=== PATIENT | female | born 1965 | race Caucasian/White ===

== ENCOUNTER 2016-11-25 18:21 | Emergency (ER) | payer SELFPAY ==
[~2016-11-25] VITALS: Ht 152.4 cm; Wt 77.1 kg
[~2016-11-25 18:21] MED LIST: ALBU8.5H2 IH; ALPR0.5T PO; ALPR0.5T72 PO; ALPR2TAB2 PO; AMIT25TA9 PO; CHOLESTEROL MED; CYCL10TA9 PO; DOXY100C2 PO; DULO30CA; DULO60CA6; ESCT10T PO; HYDR-3062 PO; HYDR1CAP2 PO; HYDR1TAB PO; HYDR25CA5 PO; HYOS0.1216 PO; INSU100C7 SQ; INSU100I10 SQ; INSU100I14 SQ; INSU100V13 SQ; INSU100V6 SQ; INSUSS SC; LOVA20TA2 PO; METF500T8 PO; METH4TAB PO; METO10TA3 PO; MTF500T PO; Metoprolol Succinate PO; NF-ESOM40C PO; ONDA-42 SL; PHEN37.582; PRD10T PO; Pantoprazole Sodium PO; RABE20TA PO; RT-FLOV110 INH; SCR1T1 PO; TRZ100T
[2016-11-25] MEDS ORDERED: NS IV 1000 ML 1,000 ML IV ONE ×2 (18:29→20:51)
[2016-11-25] MEDS ORDERED: PANTOPRAZOLE 40 MG/10 ML (PROTONIX) VIAL IV ONE (18:30)
[2016-11-25] MEDS ORDERED: ONDANSETRON 4 MG/2 ML (SDV) Z0FRAN IVP ONE (18:30)
[2016-11-25 18:55] LABS: BASOPHILS % (AUTO) 0 % (0-10); EOSINOPHILS # (AUTO) 0.1 10^3/uL (0.0-0.3); EOSINOPHILS % (AUTO) 1 % (0-10); LYMPHOCYTES # (AUTO) 1.8 X 10^3 (1.0-4.0); LYMPHOCYTES % (AUTO) 20 % (12-44); MEAN CORPUSCULAR HEMOGLOBIN 29 PG (25-34); MEAN CORPUSCULAR HGB CONC 35 G/DL (32-36); MEAN CORPUSCULAR VOLUME 83 FL (80-99); MONOCYTES # (AUTO) 0.7 X 10^3 (0.0-1.0); MONOCYTES % (AUTO) 7 % (0-12); NEUTROPHILS # (AUTO) 6.4 X 10^3 (1.8-7.8); NEUTROPHILS % (AUTO) 71 % (42-75); PLATELET COUNT 277 10^3/uL (130-400); RED BLOOD COUNT 5.16 10^6/uL (4.35-5.85); RED CELL DISTRIBUTION WIDTH 13.1 % (10.0-14.5)
[2016-11-25 19:35] LABS: ALANINE AMINOTRANSFERASE 28 U/L (0-55); ALBUMIN 4.1 G/DL (3.2-4.5); AMYLASE 48 U/L (25-125); ANION GAP 14 MMOL/L (5-14); ASPARTATE AMINO TRANSFERASE 17 U/L (5-34); BILIRUBIN,TOTAL 0.9 MG/DL (0.1-1.0); BLOOD UREA NITROGEN 12 MG/DL (7-18); BUN/CREATININE RATIO 13; CALCIUM 9.3 MG/DL (8.5-10.1); CARBON DIOXIDE 20 MMOL/L (21-32); CHLORIDE 103 MMOL/L (98-107); CREATINE KINASE 51 U/L (29-168); CREATININE SERUM 0.94 MG/DL (0.60-1.30); GFR ESTIMATED > 60; GLUCOSE 352 MG/DL (70-105); LIPASE 21 U/L (8-78); POTASSIUM 3.9 MMOL/L (3.6-5.0); SODIUM 137 MMOL/L (135-145); TOTAL PROTEIN 7.5 G/DL (6.4-8.2)
[2016-11-25] MEDS ORDERED: ACETAMINOPHEN 500 MG TAB (TYLENOL) PO ONE (20:00)
[2016-11-25] MEDS ORDERED: IBUPROFEN 800 MG (MOTRIN) TAB PO ONE (20:00)
[2016-11-25 20:23] LABS: BILIRUBIN,URINE NEGATIVE (NEGATIVE); KETONES,URINE 3+ (NEGATIVE); LEUKOCYTE ESTERASE ,URINE 1+ (NEGATIVE); NITRITE,URINE NEGATIVE (NEGATIVE); PH,URINE 5 (5-9); PROTEIN,URINE NEGATIVE (NEGATIVE); UROBILINOGEN,URINE NORMAL (NORMAL)
--- NOTE | 2016-11-25 20:26 | ED General ---
General Chief Complaint: Dizziness/Syncope Stated Complaint: FALL Nursing Triage Note: PT ARRIVED PER EMS FROM [facility], PT STATES HAD SHAKING EPIDSODE WHILE HAVING FEVER AND BATHING IN WARM TUB OF SHAKING, PT IS NOT POSTICTAL. PT TALKING ABOUT EPISODE Nursing Sepsis Screen: No Definite Risk Source of Information: Patient, EMS, Family (daughter) History of Present Illness Time Seen by Provider: 18:17 Initial Comments PT ARRIVES VIA EMS FROM [place] DAUGHTER CALLED EMS FOR REPORTED "SEIZURE"--DAUGHTER STATES "SHE WAS ALMOST DONE BY THE TIME I CAME OVER" --DAUGHTER [place]ES [place] [address] AND CAME TO PT' S HOUSE AT 1640 DAUGHTER STATES THAT PT HAS SEIZURES "ONLY WHEN SHE IS REALLY STRESSED" -- DAUGHTER STATES THAT HER WHOLE BODY WAS SHAKING, BUT SHE WAS NOT UNCONSCIOUS. PT STATES "I DON'T HAVE SEIZURES" "WHEN I GET UPSET I HAVE PANIC ATTACKS THAT LOOK LIKE A SEIZURE" PT STATES THAT SHE WENT TO WORK THIS AM AT [employer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facility] Allergies and Home Medications Allergies Coded Allergies: No Known Drug Allergies (Verified , 03/11/14) Home Medications Hyoscyamine Sulfate 0.125 Mg Tab.subl #15 1-2 TAB SL Q4H Prescribed by: NATALIE BEY on 11/25/162111 Insulin Aspart 100 Unit/1 Ml Insuln.pen 25 UNITS SQ TID (Reported) Insulin Glargine,Hum.rec.anlog 300 Unit/3 Ml Insuln.pen 40 UNITS SQ BID ( Reported) Ondansetron 4 Mg Tab.rapdis #10 4 MG PO Q4H Prescribed by: NATALIE BEY on 11/25/162111 Constitutional: see HPI chills fever EENTM: no symptoms reported Respiratory: no symptoms reported Cardiovascular: no symptoms reported Gastrointestinal: see HPI abdominal pain (CRAMPING) diarrhea loss of appetite nausea vomiting Genitourinary: see HPI decreased output Musculoskeletal: see HPI (BODY ACHES) Skin: no symptoms reported Psychiatric/Neurological: See HPIDenies Headache, Denies Numbness, Denies Paresthesia, Denies Seizure (PT DENIES HAVING A SEIZURE), Tremors Hematologic/Lymphatic: No Symptoms Reported Immunological/Allergic: no symptoms reported Past Woppbid-Mugtme-Jpwpig Hx Patient Social History Alcohol Use: Denies Use Recreational Drug Use: No Smoking Status: Never a Smoker Recent Foreign Travel: No Contact w/Someone Who Travel: No Recent Infectious Disease Expo: No Recent Hopitalizations: No Physical Abuse Screen: No Sexual Abuse: No Immunizations Up To Date Tetanus Booster (TDap): Unknown Date of Pneumonia Vaccine: Aug 13, 2013 Date of Influenza Vaccine: Aug 13, 2013 Seasonal Allergies Seasonal Allergies: No Surgeries HX Surgeries: Yes (LEFT SHOULDER SCOPE, RIGHT KNEE SCOPE, HYST/BSO FOR BENIGN DISEASE; CARDIAC CATH) Surgeries: Cardiac, Gallbladder, Hysterectomy, Oophorectomy, Orthopedic Respiratory Hx Respiratory Disorders: Yes Respiratory Disorders: Asthma Cardiovascular Hx Cardiac Disorders: Yes (CP, HEART CATH NO STENTING) Neurological Hx Neurological Disorders: No Reproductive System Hx Reproductive Disorders: No Sexually Transmitted Disease: No HIV/AIDS: 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 Genitourinary Hx Genitourinary Disorders: No Gastrointestinal Hx Gastrointestinal Disorders: Yes Gastrointestinal Disorders: Gastroesophageal Reflux (SELF DX--TAKES OTC MEDICATIONS PRN) Musculoskeletal Hx Musculoskeletal Disorders: No Endocrine Hx Endocrine Disorders: Yes Endocrine Disorders: Diabetes, Insulin dep HEENT HX ENT Disorders: No Loss of Vision: Bilateral Cancer Hx Cancer: No Psychosocial Hx Psychiatric Problems: Yes Behavioral Health Disorders: Pseudo Seizures, Anxiety, Suicide Attempts, Depression Integumentary HX Skin/Integumentary Disorder: No Blood Transfusions Hx Blood Disorders: No Adverse Reaction to a Blood Tr: No Family Medical History Family Medial History: Cancer 03 FATHER 03 MOTHER Family history: Diabetes mellitus 03 FATHER 03 MOTHER Family history: Hypertension 03 MOTHER History of - respiratory disease 03 MOTHER Physical Exam Vital Signs Vital Sign - Last 12Hours 11/25/16 18:21 Temp 101.2 Pulse 109 Resp 17 B/P 138/95 Pulse Ox 93 Capillary Refill : Less Than 3 Seconds General Appearance: No Apparent Distress WD/WN Anxious Other (VERY DRAMATIC, ANXIOUS, TREMULOUS. DOES NOT APPEAR POST-ICTAL, PT IS FULLY DRESSED. ) HEENT: PERRL/EOMI TMs Normal Normal ENT Inspection Pharynx Normal Neck: Full Range of Motion Normal Inspection Non Tender Supple Respiratory: Normal Breath Sounds No Accessory Muscle Use No Respiratory Distress Cardiovascular: Regular Rate, Rhythm No Edema No JVD No Murmur Normal Peripheral Pulses Gastrointestinal: Normal Bowel Sounds No Organomegaly No Pulsatile Mass Soft Tenderness (MILD DIFFUSE) Back: Normal Inspection No CVA Tenderness No Vertebral Tenderness Extremity: Normal Capillary Refill Normal Inspection Normal Range of Motion Non Tender No Calf Tenderness No Pedal Edema Neurologic/Psychiatric: Alert Oriented x3 No 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/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 Norm as Tested Skin: Normal Color Warm/Dry (VERY WARM) Progress/Results/Core Measures Results/Orders Lab Results Laboratory Tests Test 11/25/16 18:25 11/25/16 20:13 11/25/16 20:50 11/25/16 21:41 Range/Units Alanine Aminotransferase (ALT/SGPT) 28 0-55 U/L Albumin 4.1 3.2-4.5 G/DL Alkaline Phosphatase 98 40-136 U/L Amylase Level 48 25-125 U/L Anion Gap 14 5-14 MMOL/L Aspartate Amino Transf (AST/SGOT) 17 5-34 U/L BUN/Creatinine Ratio 13 Basophils # (Auto) 0.0 0.0-0.1 10^3/uL Basophils (%) (Auto) 0 0-10 % Blood Urea Nitrogen 12 7-18 MG/DL Calcium Level 9.3 8.5-10.1 MG/DL Carbon Dioxide Level 20 L 21-32 MMOL/L Chloride Level 103 98-107 MMOL/L Creatinine 0.94 0.60-1.30 MG/DL Eosinophils # (Auto) 0.1 0.0-0.3 10^3/uL Eosinophils (%) (Auto) 1 0-10 % Estimat Glomerular Filtration Rate > 60 Glucose Level 352 H 70-105 MG/DL Hematocrit 43 35-52 % Hemoglobin 14.7 11.5-16.0 G/DL Lactic Acid Level 1.6 0.5-2.0 MMOL/L Lipase 21 8-78 U/L Lymphocytes # (Auto) 1.8 1.0-4.0 X 10^3 Lymphocytes (%) (Auto) 20 12-44 % Magnesium Level 2.0 1.8-2.4 MG/DL Mean Corpuscular Hemoglobin 29 25-34 PG Mean Corpuscular Hemoglobin Concent 35 32-36 G/DL Mean Corpuscular Volume 83 80-99 FL Mean Platelet Volume 10.0 7.4-10.4 FL Monocytes # (Auto) 0.7 0.0-1.0 X 10^3 Monocytes (%) (Auto) 7 0-12 % Neutrophils # (Auto) 6.4 1.8-7.8 X 10^3 Neutrophils (%) (Auto) 71 42-75 % Platelet Count 277 130-400 10^3/uL Potassium Level 3.9 3.6-5.0 MMOL/L Red Blood Count 5.16 4.35-5.85 10^6/uL Red Cell Distribution Width 13.1 10.0-14.5 % Sodium Level 137 135-145 MMOL/L TSH Plain Testing 1.03 0.35-4.94 UIU/ML Total Bilirubin 0.9 0.1-1.0 MG/DL Total Creatine Kinase 51 29-168 U/L Total Protein 7.5 6.4-8.2 G/DL White Blood Count 9.0 4.3-11.0 10^3/uL Urine Bacteria NEGATIVE /HPF Urine Bilirubin NEGATIVE NEGATIVE Urine Casts NONE /LPF Urine Clarity CLEAR Urine Color YELLOW Urine Crystals NONE /LPF Urine Culture Indicated NO Urine Glucose (UA) 4+ H NEGATIVE Urine Ketones 3+ H NEGATIVE Urine Leukocyte Esterase 1+ H NEGATIVE Urine Mucus NEGATIVE /LPF Urine Nitrite NEGATIVE NEGATIVE Urine Protein NEGATIVE NEGATIVE Urine RBC RARE /HPF Urine RBC (Auto) 1+ H NEGATIVE Urine Specific [place] 1.020 1.016-1.022 Urine Squamous Epithelial Cells 2-5 /HPF Urine Urobilinogen NORMAL NORMAL MG/DL Urine WBC 2-5 /HPF Urine Yeast FEW H /HPF Urine pH 5 5-9 Glucometer 314 H 291 H 70-110 MG/DL My Orders Orders-NATALIE BEY DO Accucheck Stat ONCE (11/25/16 18:29) Saline Lock/Iv-Start (11/25/16 18:29) Ekg Tracing (11/25/16 18:29) Monitor-Rhythm Ecg Trace Only (11/25/16 18:29) Amylase (11/25/16 18:29) Cbc With Automated Diff (11/25/16 18:29) Comprehensive Metabolic Panel (11/25/16 18:) Creatine Kinase (11/25/16 18:29) Lactic Acid Analyzer (11/25/16 18:29) Lipase (11/25/16 18:29) Magnesium (11/25/16 18:29) Thyroid Analyzer (11/25/16 18:29) Ua Culture If Indicated (11/25/16 18:29) Blood Culture (11/25/16 18:29) Saline Lock/Iv-Start (11/25/16 18:29) Ns Iv 1000 Ml (Sodium Chloride 0.9%) (11/25/16 18:29) Ondansetron Injection (Zofran Injectio (11/25/16 18:30) Pantoprazole Injection (Protonix Injecti (11/25/16 18:30) Acetaminophen Tablet (Tylenol Tablet) (11/25/16 20:00) Ibuprofen Tablet (Motrin Tablet) (11/25/16 20:00) Stool Culture (11/25/16 20:06) Fecal Wbc (11/25/16 20:06) C Difficile Ag + Toxin A/B. (11/25/16 20:06) Hyoscyamine Sl Tablet (Levsin Sl Tablet) (11/25/16 20:30) Insulin (Regular) Human (Humulin R (Per (11/25/16 21:00) Ns Iv 1000 Ml (Sodium Chloride 0.9%) (11/25/16 20:51) Ns Iv 1000 Ml (Sodium Chloride 0.9%) (11/25/16 20:47) Accucheck Stat ONCE (11/25/16 21:09) Rx-Hyoscyamine Tab (Rx-Levsin Sl) (11/25/16 21:59) Medications Given in ED Current Medications Medications Dose Ordered Sig/Devon Route Start Time Stop Time Status Last Admin Dose Admin Acetaminophen 1,000 mg ONCE ONCE PO 11/25/16 20:00 11/25/16 20:01 DC 11/25/16 19:58 1,000 MG Hyoscyamine Sulfate 0.25 mg ONCE ONCE PO 11/25/16 20:30 11/25/16 20:31 DC 11/25/16 20:27 0.25 MG Ibuprofen 800 mg ONCE ONCE PO 11/25/16 20:00 11/25/16 20:01 DC 11/25/16 19:58 800 MG Insulin Human Regular 20 unit 20 unit ONCE ONCE IV 11/25/16 21:00 11/25/16 21:01 DC 11/25/16 20:58 20 UNIT Ondansetron HCl 4 mg ONCE ONCE IVP 11/25/16 18:30 11/25/16 18:32 DC 11/25/16 19:39 4 MG Pantoprazole 40 mg ONCE ONCE IV 11/25/16 18:30 11/25/16 18:32 DC 11/25/16 19:39 40 MG Sodium Chloride 1,000 ml STK-MED ONCE .ROUTE 11/25/16 20:47 11/25/16 20:55 DC 11/25/16 20:57 Sodium Chloride 1,000 ml @ 0 mls/hr Q0M ONCE IV 11/25/16 18:29 11/25/16 18:32 DC 11/25/16 19:40 1,000 MLS/HR Vital Signs/I&O Vital Sign - Last 12Hours 11/25/16 11/25/16 11/25/16 11/25/16 18:21 20:18 21:00 21:35 Temp 101.2 100.0 99.6 99.6 Pulse 109 92 94 Resp 18 18 B/P 138/95 158/75 149/62 Pulse Ox 93 99 96 11/25/16 21:35 Temp 99.6 Blood Pressure Mean: 109 Progress Note : Progress Note NO VOMITING DURING ER STAY--NAUSEA IMPROVED WITH ZOFRAN, AND PT TOLERATING ICE CHIPS ABDOMINAL CRAMPING RESOLVED WITH LEVSIN PT DID HAVE SMALL AMOUNTS OF WATERY DIARRHEA X 4 DURING ER STAY--SPECIMEN SENT FOR STOOL STUDIES. REPEAT ACCUCHECK 314--GIVEN IV INSULIN AND ADDITIONAL FLUIDS REPEAT ACCUCHECK 291 TEMP DOWN AND BODY ACHES RESOLVED WITH TYLENOL AND MOTRIN ECG Initial ECG Impression Time: 18:33 Initial ECG Rate: 105 Initial ECG Rhythm: Normal Sinus (MUCH ARTIFACT DUE TO PT BEING TREMULOUS) Departure Impression Impression: Primary Impression: Gastroenteritis Additional Impression: HYPERGLYCEMIA IN TYPE 2 IDDM Disposition: 01 HOME, SELF-CARE Condition: Improved Departure-Patient Inst. Referrals: NO,LOCAL PHYSICIAN (PCP/Family) Primary Care Physician Patient Instructions: Sick Day Management for Diabetics, Viral Gastroenteritis , Adult (DC) Add. Discharge Instructions: CLEAR LIQUIDS--WATER, BROTH, JELLO, GATORADE BRATS DIET--BANANAS, RICE, APPLESAUCE, TOAST, SALTINES ACIDOPHILUS 2 PILLS 4 TIMES A DAY X 1 WEEK CHECK YOUR BLOOD SUGAR 4 TIMES A DAY AND KEEP DIARY--TAKE YOUR INSULIN PRESCRIBED. TYLENOL AND MOTRIN NEEDED FOR PAIN OR FEVER OVER [address] UP WITH YOUR DR IN 2 DAYS IF NO BETTER All discharge instructions reviewed with patient and/or family. Voiced understanding. Scripts Ondansetron (Zofran Odt)4 Mg Tab.rapdis4 Mg PO Q4H Nausea/Vomiting #10 TAB Prov:NATALIE BEY DO 11/25/16 Hyoscyamine Sulfate (Levsin-Sl)0.125 Mg Tab.subl1-2 Tab SL Q4H Abdominal Pain # 15 TAB Prov:NATALIE BEY DO 11/25/16 NATALIE BEY DO Nov 25, 2016 20:25
[2016-11-25] MEDS ORDERED: HYOSCYAMINE 0.125 MG (LEVSIN) TAB PO ONE (20:30)
[2016-11-25 20:38] LABS: YEAST,URINE FEW /HPF
[2016-11-25] MEDS ORDERED: NS IV 1000 ML 1,000 ML ONE (20:47)
[2016-11-25] MEDS ORDERED: inSUlin (REGULAR) HUMAN 1 UNIT/0.01 ML (CHARGE PER UNIT) IV ONE (21:00)
[2016-11-25] MEDS ORDERED: ONDA4TAB8 PO (21:12)
[2016-11-25] MEDS ORDERED: HYOS0.1283 SL (21:12)
[2016-11-25] MEDS ORDERED: RX-HYOSCYAMINE 0.125 MG SL (LEVSIN) PPK#6 SL STA (21:59)
[2016-11-25 22:11] VITALS: BP 114/54
== END 2016-11-25 22:09 | disposition home or self-care (01) ==
LOC: EDUNIT# 18:21 → ER 18:22
DX: K52.9 Noninfective gastroenteritis and colitis, unspecified (principal); E11.65 Type 2 diabetes mellitus with hyperglycemia
CPT/HCPCS: 36415; 80053; 81000; 82150; 82550; 82962; 83605; 83690; 83735; 84443; 85025; 87040; 87045; 87046; 87324; 87449; 89055; 93005; 93041; 96361; 96374; 96375

== ENCOUNTER 2018-05-06 14:14 | Emergency (ER) | payer SELFPAY ==
[~2018-05-06] VITALS: Ht 154.9 cm; Wt 72.6 kg
[~2018-05-06 14:14] MED LIST changes: +HYOS0.1283 SL; +ONDA4TAB8 PO
[2018-05-06] MEDS ORDERED: LIDOCAINE 2% VISCOUS 15 ML UDC PO ONE (14:30)
[2018-05-06] MEDS ORDERED: ANTACID SUSP 30 ML UDC (MYLANTA) PO ONE (14:30)
--- NOTE | 2018-05-06 14:30 | ED GI ---
General Stated Complaint: THROAT DISCOMFORT Source of Information: Patient, Family Exam Limitations: No Limitations (ELISHA SCHWAB) History of Present Illness Date Seen by Provider: May 06, 2018 Time Seen by Provider: 14:22 Initial Comments Patient presents to the ER by private conveyance from urgent care where she was seen just prior. She says she about 8 or 9:00 last night started feeling a lump of something in her throat like she was choking. She says she didn't choke on any food earlier and she wasn't eating at that time. She says it came on suddenly and has progressively been getting worse. She says she is scared to eat or drink because afraid that she might choke on it has a hard time getting more liquids down past it. She has no history of cancer, or stroke. She says she 's tried taking some Maalox and that didn't make it any better. She has not thrown up she's tried several times to make herself throw up because she feels like there is something in there she did get out. She's not having a painful or sore itchy throat. She's not having any difficulty breathing. She's having no stridor or wheezing. She does not have a history of COPD, anaphylaxis or asthma. She's not having any nausea fevers chills cough or shortness of breath. (ELISHA SCHWAB) Allergies and Home Medications Allergies Coded Allergies: No Known Drug Allergies (Verified , 03/11/14) Home Medications Hyoscyamine Sulfate 0.125 Mg Tab.subl, 1-2 TAB SL Q4H Prescribed by: NATALIE BEY on 11/25/162111 Insulin Aspart 100 Unit/1 Ml Insuln.pen, 25 UNITS SQ TID, (Reported) Insulin Glargine,Hum.rec.anlog 300 Unit/3 Ml Insuln.pen, 40 UNITS SQ BID, ( Reported) Ondansetron 4 Mg Tab.rapdis, 4 MG PO Q4H Prescribed by: NATALIE BEY on 11/25/162111 Patient Home Medication List Home Medication List Reviewed: Yes (ELISHA SCHWAB) Review of Systems Constitutional: No chills, No diaphoresis, No fever EENTM: No Blurred Vision, No Double Vision Respiratory: Denies Cough, Denies Shortness of Air, Denies Stridor, Denies Wheezing Cardiovascular: Denies Chest Pain, Denies Edema Gastrointestinal: Denies Constipated, Denies Diarrhea, Denies Nausea; Poor Appetite, Poor Fluid Intake; Denies Vomiting Genitourinary: Denies Burning, Denies Discharge Musculoskeletal: No back pain, No joint pain Skin: No pruritus, No rash Psychiatric/Neurological: Denies Headache, Denies Numbness, Denies Paresthesia (ELISHA SCHWAB) Past Pdnbaay-Eqgdml-Chvqmz Hx Patient Social History Alcohol Use: Denies Use Recreational Drug Use: No Smoking Status: Never a Smoker Recent Foreign Travel: No Contact w/Someone Who Travel: No Recent Hopitalizations: No (ELISHA SCHWAB) Immunizations Up To Date Tetanus Booster (TDap): Unknown Date of Pneumonia Vaccine: Aug 13, 2013 Date of Influenza Vaccine: Aug 13, 2013 (ELISHA SCHWAB) Seasonal Allergies Seasonal Allergies: No (ELISHA SCHWAB) Past Medical History Cardiac, Gallbladder, Hysterectomy, Oophorectomy, Orthopedic Asthma 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 Sexually Transmitted Disease: No HIV/AIDS: No Gastroesophageal Reflux Diabetes, Insulin dep Loss of Vision: Bilateral Pseudo Seizures, Anxiety, Suicide Attempts, Depression Adverse Reaction/Blood Tranf: No (ELISHA SCHWAB) Family Medical History Cancer 03 FATHER 03 MOTHER Family history: Diabetes mellitus 03 FATHER 03 MOTHER Family history: Hypertension 03 MOTHER History of - respiratory disease 03 MOTHER Physical Exam Vital Signs Vital Signs - First Documented 05/06/18 14:21 Temp 97.0 Pulse 96 Resp 12 B/P (MAP) 198/118 (144) O2 Delivery Room Air (ELISA MOREAU MD) Vital Signs Capillary Refill : (ELISHA SCHWAB) General Appearance: WD/WN, mild distress (anxious) HEENT: PERRL/EOMI, TMs normal, pharynx normal Respiratory: chest non-tender, lungs clear, normal breath sounds, no respiratory distress, no accessory muscle use Cardiovascular: normal peripheral pulses, regular rate, rhythm Peripheral Pulses: 2+ Radial Pulses (R), 2+ Radial Pulses (L) Gastrointestinal: non tender, soft Extremities: non-tender, normal capillary refill Neurologic/Psychiatric: alert, oriented x 3, other (anxious and agitated) ( ELISHA SCHWAB) Progress/Results/Core Measures Results/Orders Lab Results Laboratory Tests Test 05/06/18 15:13 05/06/18 18:58 Range/Units White Blood Count 12.3 H 4.3-11.0 10^3/uL Red Blood Count 5.05 4.35-5.85 10^6/uL Hemoglobin 14.5 11.5-16.0 G/DL Hematocrit 41 35-52 % Mean Corpuscular Volume 81 80-99 FL Mean Corpuscular Hemoglobin 29 25-34 PG Mean Corpuscular Hemoglobin Concent 35 32-36 G/DL Red Cell Distribution Width 13.1 10.0-14.5 % Platelet Count 358 130-400 10^3/uL Mean Platelet Volume 9.5 7.4-10.4 FL Neutrophils (%) (Auto) 48 42-75 % Lymphocytes (%) (Auto) 43 12-44 % Monocytes (%) (Auto) 8 0-12 % Eosinophils (%) (Auto) 1 0-10 % Basophils (%) (Auto) 1 0-10 % Neutrophils # (Auto) 5.9 1.8-7.8 X 10^3 Lymphocytes # (Auto) 5.3 H 1.0-4.0 X 10^3 Monocytes # (Auto) 1.0 0.0-1.0 X 10^3 Eosinophils # (Auto) 0.1 0.0-0.3 10^3/uL Basophils # (Auto) 0.1 0.0-0.1 10^3/uL Sodium Level 139 135-145 MMOL/L Potassium Level 3.8 3.6-5.0 MMOL/L Chloride Level 105 98-107 MMOL/L Carbon Dioxide Level 22 21-32 MMOL/L Anion Gap 12 5-14 MMOL/L Blood Urea Nitrogen 10 7-18 MG/DL Creatinine 0.77 0.60-1.30 MG/DL Estimat Glomerular Filtration Rate > 60 BUN/Creatinine Ratio 13 Glucose Level 116 H 70-105 MG/DL Calcium Level 10.0 8.5-10.1 MG/DL Total Bilirubin 0.7 0.1-1.0 MG/DL Aspartate Amino Transf (AST/SGOT) 27 5-34 U/L Alanine Aminotransferase (ALT/SGPT) 45 0-55 U/L Alkaline Phosphatase 103 40-136 U/L C-Reactive Protein High Sensitivity 2.30 H 0.00-0.50 MG/DL Total Protein 8.1 6.4-8.2 GM/DL Albumin 4.3 3.2-4.5 GM/DL Group A Streptococcus Screen NEGATIVE NEGATIVE (ELISA MOREAU MD) My Orders Orders - ELISA MOREAU MD Rapid Strep A Screen (05/06/18 19:01) Ketorolac Injection (Toradol Injection) (05/06/18 19:45) Fluconazole Tablet (Ed Only) (Diflucan T (05/06/18 19:45) Nystatin Oral Suspension (Mycostatin O (05/06/18 19:45) Ct Neck (Soft Tissue) Wo (05/06/18 20:04) (ELISA MOREAU MD) Medications Given in ED Current Medications Medications Dose Ordered Sig/Devon Route Start Time Stop Time Status Last Admin Dose Admin Al Hydrox/Mg Hydrox/Simethicone 30 ml ONCE ONCE PO 05/06/18 14:30 05/06/18 14:31 DC 05/06/18 14:32 30 ML Fluconazole 150 mg ONCE ONCE PO 05/06/18 19:45 05/06/18 19:46 DC 05/06/18 19:57 150 MG Iohexol 100 ml ONCE ONCE IV 05/06/18 15:00 05/06/18 15:01 DC 05/06/18 20:34 100 ML Lidocaine HCl 15 ml ONCE ONCE PO 05/06/18 14:30 05/06/18 14:31 DC 05/06/18 14:32 15 ML Lorazepam 2 mg ONCE ONCE IVP 05/06/18 15:30 05/06/18 15:31 DC 05/06/18 15:31 2 MG Nystatin 5 ml ONCE ONCE PO 05/06/18 19:45 05/06/18 19:46 DC 05/06/18 19:58 5 ML Sodium Chloride 100 ml ONCE ONCE IV 05/06/18 15:00 05/06/18 15:01 DC 05/06/18 20:34 80 ML (ELISA MOREAU MD) Vital Signs/I&O 05/06/18 14:21 Temp 97.0 Pulse 96 Resp 12 B/P (MAP) 198/118 (144) O2 Delivery Room Air (ELISA MOREAU MD) Progress Progress Note #1: Time: 15:16 Progress Note Story doesn't quite line up with a obstruction in her throat from food bolus. Clinically and obtain a CT of soft tissues of her neck with contrast as well as her chest see if can't see what might be developing pressure against her throat. We have offered her Zofran but she is declined because she does not have any nausea right now. Progress Note #2: Time: 17:27 Progress Note Getting imaging done has presented a delay because the CT machine went down and they worked on it for over an hour before declaring it broken. The patient will go to the cancer Center now and get her CT imaging done with the radio station operator. Patient is stable with a good airway. She was having some anxiety so we offered her some Ativan which she accepted. After the Ativan was given she is feeling much more relaxed. (ELISHA SCHWAB) Progress Note #1: Time: 19:04 Progress Note Care of this patient was assumed from Dr. Schwab at shift change. Labs have been reviewed. Patient has slight leukocytosis but is otherwise stable. Blood pressure has improved a bit after being treated for anxiety. Repeat examination notes a mildly tender anterior neck just above the sternal notch. No mass or lymphadenopathy is appreciated. Examination of the pharynx demonstrates some swollen tissue at the inferior location of the tonsils, possibly some remnant tonsillar tissue (patient is status post tonsillectomy). A rapid strep test has been collected and sent. Patient has been on antibiotics for about 4 days for a dental issue. Her symptoms with the throat started yesterday. Given recent start of antibiotics, thrush is a consideration. There was some white plaquing to the tissue posterior to the tongue. CT of the chest was unremarkable. CT was viewed by me and report reviewed. CT scan of the soft tissues of the neck could not be performed due to CT machine malfunction. CT is still not available at this time. Results to this point have been communicated to the patient. Once the strep test has been reviewed, Dr. Johansen will be updated and disposition will be determined. Patient did demonstrate ability to swallow water in the exam room. She will took 3 sips without regurgitation but she did have significant pain. Progress Note #2: Time: 20:02 Progress Note Patient complains of pain with flushing of her IV site. She and CT staff do not feel comfortable with pushing the contrast bolus through that site. She refuses to have a second line placed. CT will be changed to a noncontrast study to accommodate this complication. Patient also declined Toradol. (ELISA MOREAU MD) Diagnostic Imaging Diagonstic Imaging: CT (with contrast) Plain Films/CT/US/NM/MRI: chest, other (soft tissues of the neck) Reviewed: Reviewed by Me (ELISHA SCHWAB) Comments CT chest viewed by me and report reviewed. See report below: NAME: JASON BALES [facility] REC#: [id number] PT STATUS: REG ER : 1965 PHYSICIAN: ELISHA SCHWAB MD ADMIT DATE: 05/06/18/ER Signed Date of Exam: 05/06/18 CT CHEST W PROCEDURE: CT chest with contrast only. TECHNIQUE: Multiple contiguous axial images were obtained through the chest after administration of intravenous contrast. INDICATION: Sensation of something stuck in throat. FINDINGS: The visualized portion of the esophagus demonstrates no evidence of a radiodense foreign body. No foreign body evident within the stomach. Thoracic aorta is normal in caliber. There is no filling defect within the central pulmonary arteries on this nondedicated exam. Heart size is normal. There is no pericardial effusion. The lungs demonstrate some minimal dependent atelectasis and are otherwise clear. No effusion or pneumothorax demonstrated. No pulmonary nodule or mass evident. There are no pathologically enlarged thoracic lymph nodes. The visualized portion of the upper abdomen demonstrates prior cholecystectomy but no acute process. There is no acute or suspicious osseous abnormality. IMPRESSION: 1. No CT evidence of a radiodense foreign body within the esophagus or stomach. 2. Lungs appear clear. 3. No pathologic adenopathy. 4. No suspicious osseous abnormality. Dictated by: Dictated on workstation # [id number] Dict: 05/06/181814 Trans: 05/06/181825 Interpreted by: RAJ RODAS MD Electronically signed by: RAJ RODAS MD 05/06/181825 Diagonstic Imaging: CT Plain Films/CT/US/NM/MRI: other (soft tissues neck) Comments CT soft tissues neck viewed by me and report reviewed. See report below: NAME: JASON BALES [facility] REC#: [id number] PT STATUS: REG ER : 1965 PHYSICIAN: ELISA MOREAU MD ADMIT DATE: 05/06/18/ER Draft Date of Exam:05/06/18 CT NECK (SOFT TISSUE) WO PROCEDURE: CT neck soft tissue without contrast. TECHNIQUE: Multiple contiguous axial images were obtained through the neck without the use of intravenous contrast. INDICATION: Sensation of something stuck in throat. COMPARISON: Correlation made with CT of the chest from earlier in the same day. FINDINGS: The posterior nasopharynx and oropharynx appear appropriately symmetric. There is no displacement of the parapharyngeal fat planes. There is no thickening of the epiglottis. The vocal folds appear symmetric. The proximal aspect of the esophagus is unremarkable. There is no CT evidence of a radiodense foreign body. Parotid, submandibular and thyroid glands are unremarkable. There are scattered small lymph nodes demonstrated throughout the neck but none which appear pathologically enlarged by CT criteria. The visualized intracranial contents demonstrate no acute process. The orbital contents are unremarkable. The mastoids appear clear. The paranasal sinuses appear clear. Lung apices are clear. Cervical spine alignment is normal without evidence of an acute osseous abnormality. IMPRESSION: 1. There is appropriate symmetry of the aerodigestive tract with no findings of a radiodense foreign body. 2. Numerous small scattered non-pathologically enlarged cervical lymph nodes. Dictated on workstation # [id number] Dict: 05/06/182013 Trans: 05/06/180 [facility] [id number] Interpreted by: RAJ RODAS MD (ELISA MOREAU MD) Transfer of Care Time: 18:16 Care transferred to: Dr. Cordova (ELISHA SCHWAB) Departure Impression Primary Impression: Odynophagia Additional Impression: Dysphagia Qualified Codes: R13.12 - Dysphagia, oropharyngeal phase Disposition: 01 HOME, SELF-CARE Condition: Improved Departure-Patient Inst. Decision time for Depature: 19:46 (ELISA MOREAU MD) Referrals: ALEXA RUDOLPH MD (PCP/Family) Primary Care Physician Patient Instructions: Dysphagia, Thrush Add. Discharge Instructions: The exact cause of your throat pain and difficulty swallowing is uncertain at this time but may be related to yeast infection of the throat and esophagus related to your recent antibiotic use and diabetes. Continue with your antibiotics as previously prescribed. Add the nystatin swish and swallow as prescribed from the ER. Swish the solution for up to one minute, gargle, and then swallow 4 times daily. You may take Tylenol (acetaminophen) up to 1000 mg every 6 hours and/or ibuprofen up to 600 mg every 6 hours for pain. You may take the liquid forms if needed. You may crush antibiotic pills or empty the capsules if needed to help you swallow the medication. Contact your primary care provider tomorrow to give an update and make a follow-up appointment. Return to the emergency room if symptoms are worsening. I expect you to have rapid improvement over the next 24 hours with this treatment if it is caused by yeast infection. Scripts Nystatin (Nystatin) 100,000 Unit/1 Ml Oral.susp 5 ML PO QID, #120 ML Prov: ELISA MOREAU MD 05/06/18 Copy Copies To 1: ALEXA RUDOLPH MD, TITUS J May 06, 2018 14:30 ELISA MOREAU MD May 06, 2018 19:08
[2018-05-06] MEDS ORDERED: NS IV 1000 ML 1,000 ML IV SCH (14:44)
[2018-05-06] MEDS ORDERED: ONDANSETRON 4 MG/2 ML (SDV) Z0FRAN IVP ONE (14:45)
[2018-05-06] MEDS ORDERED: NS 100 ML (IVPB) BAG IV ONE (15:00)
[2018-05-06] MEDS ORDERED: IOHEXOL 350 MG/ML 100 ML (OMNIPAQUE 350) VIAL IV ONE (15:00)
[2018-05-06 15:20] LABS: BASOPHILS # (AUTO) 0.1 10^3/uL (0.0-0.1); BASOPHILS % (AUTO) 1 % (0-10); EOSINOPHILS # (AUTO) 0.1 10^3/uL (0.0-0.3); EOSINOPHILS % (AUTO) 1 % (0-10); HEMATOCRIT 41 % (35-52); HEMOGLOBIN 14.5 G/DL (11.5-16.0); LYMPHOCYTES # (AUTO) 5.3 X 10^3 (1.0-4.0); LYMPHOCYTES % (AUTO) 43 % (12-44); MEAN CORPUSCULAR HEMOGLOBIN 29 PG (25-34); MEAN CORPUSCULAR HGB CONC 35 G/DL (32-36); MEAN CORPUSCULAR VOLUME 81 FL (80-99); MEAN PLATELET VOLUME 9.5 FL (7.4-10.4); MONOCYTES % (AUTO) 8 % (0-12); NEUTROPHILS # (AUTO) 5.9 X 10^3 (1.8-7.8); NEUTROPHILS % (AUTO) 48 % (42-75); PLATELET COUNT 358 10^3/uL (130-400); RED BLOOD COUNT 5.05 10^6/uL (4.35-5.85); RED CELL DISTRIBUTION WIDTH 13.1 % (10.0-14.5); WHITE BLOOD COUNT 12.3 10^3/uL (4.3-11.0)
[2018-05-06] MEDS ORDERED: LORazepam INJ 2 MG/ML (ATIVAN) VIAL IVP ONE (15:30)
[2018-05-06 15:38] LABS: ALANINE AMINOTRANSFERASE 45 U/L (0-55); ALBUMIN 4.3 GM/DL (3.2-4.5); ALKALINE PHOSPHATASE 103 U/L (40-136); BILIRUBIN,TOTAL 0.7 MG/DL (0.1-1.0); BUN/CREATININE RATIO 13; CARBON DIOXIDE 22 MMOL/L (21-32); CHLORIDE 105 MMOL/L (98-107); CREATININE SERUM 0.77 MG/DL (0.60-1.30); GFR ESTIMATED > 60; GLUCOSE 116 MG/DL (70-105); POTASSIUM 3.8 MMOL/L (3.6-5.0); SODIUM 139 MMOL/L (135-145); TOTAL PROTEIN 8.1 GM/DL (6.4-8.2)
--- NOTE | 2018-05-06 18:24 | Diagnostic Imaging Report ---
PROCEDURE: CT chest with contrast only. TECHNIQUE: Multiple contiguous axial images were obtained through the chest after administration of intravenous contrast. INDICATION: Sensation of something stuck in throat. FINDINGS: The visualized portion of the esophagus demonstrates no evidence of a radiodense foreign body. No foreign body evident within the stomach. Thoracic aorta is normal in caliber. There is no filling defect within the central pulmonary arteries on this nondedicated exam. Heart size is normal. There is no pericardial effusion. The lungs demonstrate some minimal dependent atelectasis and are otherwise clear. No effusion or pneumothorax demonstrated. No pulmonary nodule or mass evident. There are no pathologically enlarged thoracic lymph nodes. The visualized portion of the upper abdomen demonstrates prior cholecystectomy but no acute process. There is no acute or suspicious osseous abnormality. IMPRESSION: 1. No CT evidence of a radiodense foreign body within the esophagus or stomach. 2. Lungs appear clear. 3. No pathologic adenopathy. 4. No suspicious osseous abnormality. Dictated by: Dictated on workstation # [id number]
[2018-05-06] MEDS ORDERED: FLUCONAZOLE 150 MG TABLET (ED ONLY) PO ONE (19:45)
[2018-05-06] MEDS ORDERED: NYSTATIN ORAL SUSP 5 ML UDC PO ONE (19:45)
[2018-05-06] MEDS ORDERED: KETOROLAC 30 MG/ML VIAL IVP ONE (19:45)
--- NOTE | 2018-05-06 20:41 | Diagnostic Imaging Report ---
PROCEDURE: CT neck soft tissue without contrast. TECHNIQUE: Multiple contiguous axial images were obtained through the neck without the use of intravenous contrast. INDICATION: Sensation of something stuck in throat. COMPARISON: Correlation made with CT of the chest from earlier in the same day. FINDINGS: The posterior nasopharynx and oropharynx appear appropriately symmetric. There is no displacement of the parapharyngeal fat planes. There is no thickening of the epiglottis. The vocal folds appear symmetric. The proximal aspect of the esophagus is unremarkable. There is no CT evidence of a radiodense foreign body. Parotid, submandibular and thyroid glands are unremarkable. There are scattered small lymph nodes demonstrated throughout the neck but none which appear pathologically enlarged by CT criteria. The visualized intracranial contents demonstrate no acute process. The orbital contents are unremarkable. The mastoids appear clear. The paranasal sinuses appear clear. Lung apices are clear. Cervical spine alignment is normal without evidence of an acute osseous abnormality. IMPRESSION: 1. There is appropriate symmetry of the aerodigestive tract with no findings of a radiodense foreign body. 2. Numerous small scattered non-pathologically enlarged cervical lymph nodes. Dictated by: Dictated on workstation # [id number]
[2018-05-06] MEDS ORDERED: NYST1000 PO (20:46)
[2018-05-06 21:06] VITALS: BP 154/92
== END 2018-05-06 21:06 | disposition home or self-care (01) ==
LOC: EDUNIT# 14:14 → ER 14:16
DX: R13.12 Dysphagia, oropharyngeal phase (principal); J45.909 Unspecified asthma, uncomplicated; K21.9 Gastro-esophageal reflux disease without esophagitis; E11.9 Type 2 diabetes mellitus without complications; F41.9 Anxiety disorder, unspecified; F32.9 Major depressive disorder, single episode, unspecified; Z79.4 Long term (current) use of insulin; Z91.5 Personal history of self-harm; Z90.710 Acquired absence of both cervix and uterus
CPT/HCPCS: 36415; 70490; 71260; 80053; 85025; 86141; 87430

== ENCOUNTER 2020-06-12 18:46 | Emergency (ER) | payer SELFPAY ==
[~2020-06-12] VITALS: Ht 154 cm; Wt 73.4 kg
[~2020-06-12 18:46] MED LIST changes: +NYST1000 PO
--- NOTE | 2020-06-12 18:56 | NUR ---
C-COLLAR APPLIED AT [address] MOREAU.
--- NOTE | 2020-06-12 19:04 | NUR ---
report to mya greco at this time.
--- NOTE | 2020-06-12 19:05 | ED Head Injury ---
General Chief Complaint: Head/Cervical Problems Stated Complaint: FALL Nursing Triage Note: PT PRESENTS TO ED VIA EMS AFTER A FALL. PT WAS LOADING FURNITURE INTO A CATTLE TRAILOR AND HIT THE BACK OF HER HEAD ON THE DIVIDER IN THE TRAILOR. PT FAMILY REPROTS SHE HAD LOC FOR APROX 30 SEC AFTER. PT REPORTS RESENDIZ AND EARS RINGING UPON ARRIVAL. Source: patient Exam Limitations: no limitations History of Present Illness Date Seen by Provider: Jun 12, 2020 Time Seen by Provider: 18:50 Initial Comments This 54-year-old woman presents to the emergency room after head injury with loss of consciousness. She arrives via EMS. She was loading furniture into a cattle trailer when she tripped backwards and struck her head on the gait. She reportedly had about one minute of loss of consciousness. She is alert and oriented now. She complains of headache and tenderness at the top of the cervical spine. C-collar was applied. She is otherwise neurologically intact. She denies any other injuries. She was ambulatory at the scene for EMS. She does not report any blood thinning medications. She complains of ringing and discomfort in the left ear. Allergies and Home Medications Allergies Coded Allergies: No Known Drug Allergies (Verified , 03/11/14) Home Medications Hyoscyamine Sulfate 0.125 Mg Tab.subl, 1-2 TAB SL Q4H Prescribed by: NATALIE BEY on 11/25/162111 Insulin Aspart 100 Unit/1 Ml Insuln.pen, 25 UNITS SQ TID, (Reported) Insulin Glargine,Hum.rec.anlog 300 Unit/3 Ml Insuln.pen, 40 UNITS SQ BID, (Reported) Nystatin 100,000 Unit/1 Ml Oral.susp, 5 ML PO QID Prescribed by: ELISA VALENTIN on 05/06/182045 Ondansetron 4 Mg Tab.rapdis, 4 MG PO Q4H Prescribed by: NATALIE BEY on 11/25/162111 Patient Home Medication List Home Medication List Reviewed: Yes Review of Systems Review of Systems Constitutional: no symptoms reported Eyes: No Symptoms Reported Ears, Nose, Mouth, Throat: no symptoms reported Respiratory: no symptoms reported Cardiovascular: no symptoms reported Gastrointestinal: no symptoms reported Genitourinary: no symptoms reported : No Musculoskeletal: see HPI Skin: no symptoms reported Psychiatric/Neurological: See HPI Endocrine: No Symptoms Reported Hematologic/Lymphatic: No Symptoms Reported Past Ieesxgm-Qftqql-Iziwpm Hx Past Med/Social Hx: Reviewed Nursing Past Med/Soc Hx Patient Social History Alcohol Use: Denies Use Recreational Drug Use: No Smoking Status: Never a Smoker 2nd Hand Smoke Exposure: No Recent Foreign Travel: No Contact w/Someone Who Travel: No Recent Infectious Disease Expo: No Recent Hopitalizations: No Physical Abuse: No Sexual Abuse: No Mistreated: No Fear: No Immunizations Up To Date Tetanus Booster (TDap): Unknown Date of Pneumonia Vaccine: Aug 13, 2013 Date of Influenza Vaccine: Aug 13, 2013 Seasonal Allergies Seasonal Allergies: No Past Medical History Surgeries: Yes Cardiac, Gallbladder, Hysterectomy, Oophorectomy, Orthopedic Respiratory: Yes Asthma Cardiac: Yes (CP, HEART CATH NO STENTING) Neurological: No Reproductive Disorders: No Female Reproductive Disorders: 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 Sexually Transmitted Disease: No HIV/AIDS: No Gastrointestinal: Yes Gastroesophageal Reflux Musculoskeletal: No Endocrine: Yes Diabetes, Insulin dep Loss of Vision: Bilateral Cancer: No Psychosocial: Yes Pseudo Seizures, Anxiety, Suicide Attempts, Depression Integumentary: No Blood Disorders: No Adverse Reaction/Blood Tranf: No Family Medical History Reviewed Nursing Family Hx Cancer 03 FATHER 03 MOTHER Family history: Diabetes mellitus 03 FATHER 03 MOTHER Family history: Hypertension 03 MOTHER History of - respiratory disease 03 MOTHER Physical Exam Vital Signs Vital Signs - First Documented 06/12/20 18:50 Temp 36.6 Pulse 92 Resp 18 B/P (MAP) 156/78 (104) Pulse Ox 96 Capillary Refill : Less Than 3 Seconds Height, Weight, BMI Height: 5'1.00" Weight: 160lbs. 6.0oz. [id number]; 30.00 BMI Method:Stated General Appearance: WD/WN, no apparent distress HEENT: PERRL/EOMI, normal ENT inspection, TMs normal, pharynx normal Neck: normal inspection, tender midline (over the distal cervical spine) Cardiovascular: regular rate, rhythm, no murmur Respiratory: lungs clear, normal breath sounds, no respiratory distress Gastrointestinal: non tender, soft Extremities: non-tender, normal inspection, no pedal edema Psychiatric: alert, oriented x 3 Crainal Nerves: normal hearing, normal speech, PERRL Coordination/Gait: normal finger to nose Motor/Sensory: no motor deficit, no sensory deficit Skin: normal color, warm/dry Selvin Coma Score Best Eye Response: (4) Open Spontaneously Best Verbal Response: (5) Oriented Best Motor Response: (6) Obeys Commands [place] Total: 15 Progress/Results/Core Measures Results/Orders My Orders Orders - ELISA MOREAU MD Ct Head/Cervical Spine Wo (06/12/20 18:57) Ketorolac Injection (Toradol Injection) (06/12/20 19:45) Ondansetron Oral Dissolve Tab (Zofran (06/12/20 19:45) Vital Signs/I&O 06/12/20 18:50 Temp 36.6 Pulse 92 Resp 18 B/P (MAP) 156/78 (104) Pulse Ox 96 Blood Pressure Mean: 104 Progress Progress Note #1: Time: 19:06 Progress Note C-collar was applied and patient was sent to CT scan. Progress Note #2: Time: 19:44 Progress Note Imaging studies were unremarkable. Patient was given sublingual Zofran for nausea and a Toradol injection for pain. Discharge instructions were reviewed. Patient is contacting her family to be picked up. See discharge instructions for further discussion. Diagnostic Imaging Diagonstic Imaging: CT Plain Films/CT/US/NM/MRI: c-spine, head Comments CT head and cervical spine viewed by me and report reviewed. See report below: NAME: JASON BALES [facility] REC#: [id number] PT STATUS: REG ER : 1965 PHYSICIAN: ELISA MOREAU MD ADMIT DATE: 06/12/20/ER Draft Date of Exam:06/12/20 CT HEAD/CERVICAL SPINE WO INDICATION: Fall with head and neck pain. TECHNIQUE: Multiple contiguous axial images were obtained through the brain and cervical spine without the use of intravenous contrast. Sagittal and coronal reformations through the cervical spine were then performed. Auto Exposure Controls were utilized during the CT exam to meet ALARA standards for radiation dose reduction. CT brain findings: There were no extra-axial fluid collections. No intracranial hemorrhage. No intracranial mass or mass effect. No midline shift. The ventricles are normal in size and position. There were no focal parenchymal abnormalities in the brain. Visualized portions of the orbits are normal. The calvarial windows show no evidence of fracture. The sinuses and mastoid air cells are well aerated. CT cervical spine findings: There was no evidence of cervical spine fracture. There is no subluxation or malalignment. There is no significant degenerative change. IMPRESSION: Negative CT head. Negative CT cervical spine. Dictated on workstation # [id number] Dict: 06/12/201921 Trans: 06/12/201927 [facility] [id number] Interpreted by: ZANE FARAH MD Departure Impression Primary Impression: Concussion with brief LOC Additional Impression: Fall on same level Qualified Codes: W18.30XA - Fall on same level, unspecified, initial encounter Disposition: HOME, SELF-CARE Condition: Improved Departure-Patient Inst. Decision time for Depature: 19:40 Referrals: ALEXA RUDOLPH MD (PCP/Family) Primary Care Physician Patient Instructions: Concussion in Adults Add. Discharge Instructions: Drink plenty of clear liquids to stay well-hydrated. For pain you may take ibuprofen up to 600 mg every 6 hours and/or Tylenol (acetaminophen) up to 1000 mg every 6 hours. It is very important that you observed cognitive rest for the next few days. This includes avoiding mentally challenging activity, loud noises, strenuous physical activity, etc. Remain in a calm, quiet, stress free environment. After a few days you may gradually increase level of activity as symptoms allow. If any activity causes an increase in concussion symptoms such as headache, nausea, confusion, vision changes, irritability, etc. please stop that activity and rest. Avoid any activity that would predispose you to further head injury such as use of ladders, bicycle riding, working with livestock, etc. until all concussion sy mptoms have been resolved for at least 7 days. Return to care or contact your primary care provider if you have any further problems or concerns. All discharge instructions reviewed with patient and/or family. Voiced understanding. ELISA MOREAU MD Jun 12, 2020 19:05
--- NOTE | 2020-06-12 19:29 | Diagnostic Imaging Report ---
INDICATION: Fall with head and neck pain. TECHNIQUE: Multiple contiguous axial images were obtained through the brain and cervical spine without the use of intravenous contrast. Sagittal and coronal reformations through the cervical spine were then performed. Auto Exposure Controls were utilized during the CT exam to meet ALARA standards for radiation dose reduction. CT brain findings: There were no extra-axial fluid collections. No intracranial hemorrhage. No intracranial mass or mass effect. No midline shift. The ventricles are normal in size and position. There were no focal parenchymal abnormalities in the brain. Visualized portions of the orbits are normal. The calvarial windows show no evidence of fracture. The sinuses and mastoid air cells are well aerated. CT cervical spine findings: There was no evidence of cervical spine fracture. There is no subluxation or malalignment. There is no significant degenerative change. IMPRESSION: Negative CT head. Negative CT cervical spine. Dictated by: Dictated on workstation # [id number]
--- NOTE | 2020-06-12 19:33 | NUR ---
Doctor removed C Collar
[2020-06-12] MEDS ORDERED: KETOROLAC 30 MG/ML VIAL IM ONE (19:45)
[2020-06-12] MEDS ORDERED: ONDANSETRON 4 MG (ZOFRAN) ORAL DISSOLVE TAB SL ONE (19:45)
[2020-06-12 19:50] VITALS: BP 116/97
== END 2020-06-12 19:55 | disposition home or self-care (01) ==
LOC: EDUNIT# 18:46 → ER 18:48
DX: S06.0X9A Concussion with loss of consciousness of unspecified duration, initial encounter (principal); R40.2410 Glasgow coma scale score 13-15, unspecified time; E11.9 Type 2 diabetes mellitus without complications; Z79.4 Long term (current) use of insulin; Z95.9 Presence of cardiac and vascular implant and graft, unspecified; Z82.49 Family history of ischemic heart disease and other diseases of the circulatory system; Z80.8 Family history of malignant neoplasm of other organs or systems; W01.0XXA Fall on same level from slipping, tripping and stumbling without subsequent striking against object, initial encounter
CPT/HCPCS: 70450; 72125

== ENCOUNTER 2023-02-23 19:42 | Emergency (ER) | payer SELFPAY ==
[~2023-02-23] VITALS: Ht 154 cm; Wt 73.4 kg
--- NOTE | 2023-02-23 20:00 | ED Neurological Problem ---
General Chief Complaint: Neuro-Stroke Like Symptoms Stated Complaint: STROKE Nursing Triage Note: brought in by [facility] for left sided weakness, difficulty with speech. [id number] History of Present Illness Date Seen by Provider: Feb 23, 2023 Time Seen by Provider: 19:45 Initial Comments 57-year-old female brought in with concern for some left-sided weakness, some difficulty with speech. She was last known normal around 6:15 PM. EMS reports that she had a positive [place] stroke scale on site. When they got there she was generalized shaking but was not shaking as much on the left side. That she only says few words in her symptoms. There is no obvious facial droop. Patient is diabetic. She is complaining of both head symptoms and chest pain to EMS. No reports of recent illnesses. Allergies and Home Medications Allergies Coded Allergies: No Known Drug Allergies (Verified , 03/11/14) Patient Home Medication List Home Medication List Reviewed: Yes Hyoscyamine Sulfate (Levsin-Sl) 0.125 Mg Tab.subl, 1-2 TAB SL Q4H Prescribed by: NATALIE BEY on 11/25/162111 Insulin Aspart (Novolog Pen) 100 Unit/1 Ml Insuln.pen, 25 UNITS SQ TID, (Reported) Entered as Reported by: JJ URENA on 04/27/15 08 Insulin Glargine,Hum.rec.anlog (Lantus Solostar) 300 Unit/3 Ml Insuln.pen, 40 UNITS SQ BID, (Reported) Entered as Reported by: JJ URENA on 04/27/15837 Nystatin (Nystatin) 100,000 Unit/1 Ml Oral.susp, 5 ML PO QID Prescribed by: ELISA VALENTIN on 05/06/182045 Ondansetron (Zofran Odt) 4 Mg Tab.rapdis, 4 MG PO Q4H Prescribed by: NATALIE BEY on 11/25/162111 Review of Systems Review of Systems Constitutional: see HPI Eyes: No Symptoms Reported Ears, Nose, Mouth, Throat: no symptoms reported Respiratory: no symptoms reported Cardiovascular: see HPI Gastrointestinal: no symptoms reported Genitourinary: no symptoms reported Musculoskeletal: see HPI Skin: no symptoms reported Psychiatric/Neurological: See HPI Endocrine: See HPI Past Guhxbxc-Roxxsg-Ogzdeg Hx Patient Social History Tobacco Use?: No Substance use?: No Alcohol Use?: No Pt feels they are or have been: No Immunizations Up To Date Tetanus Booster (TDap): Unknown Seasonal Allergies Seasonal Allergies: No Past Medical History Surgery/Hospitalization HX: cholecystectomy, hysterectomy, oopherectomy, cardiac sx, iddm, asthma, gerd, anxiety/depression, suicide attempt, pseudo seizures Surgeries: Yes Cardiac, Gallbladder, Hysterectomy, Oophorectomy, Orthopedic Respiratory: Yes Asthma Cardiac: Yes (CP, HEART CATH NO STENTING) Neurological: No Reproductive Disorders: No Female 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 Sexually Transmitted Disease: No HIV/AIDS: No Gastrointestinal: Yes Gastroesophageal Reflux Musculoskeletal: No Endocrine: Yes Diabetes, Insulin dep Loss of Vision: Bilateral Cancer: No Psychosocial: Yes Pseudo Seizures, Anxiety, Suicide Attempts, Depression Integumentary: No Blood Disorders: No Adverse Reaction/Blood Tranf: No Family Medical History Cancer 03 FATHER 03 MOTHER Family history: Diabetes mellitus 03 FATHER 03 MOTHER Family history: Hypertension 03 MOTHER History of - respiratory disease 03 MOTHER Physical Exam Vital Signs Vital Signs - First Documented 02/23/23 19:44 Temp 36.6 Pulse 103 Resp 14 B/P (MAP) 197/80 (119) Pulse Ox 96 O2 Delivery Room Air Capillary Refill : Less Than 3 Seconds Height, Weight, BMI Height: 5'1.00" Weight: 160lbs. 6.0oz. [id number]; 30.00 BMI Method:Stated General Appearance: other (no distress, mildy confused ) HEENT: PERRL/EOMI, normal ENT inspection Respiratory: lungs clear, normal breath sounds Cardiovascular: normal peripheral pulses, regular rate, rhythm Gastrointestinal: non tender, soft Extremities: normal range of motion Neurologic/Psychiatric: No aphasia, No facial droop; depressed affect Crainal Nerves: No facial asymmetry, No facial droop; other (slow speech but full sentences. ) Motor/Sensory: no motor deficit Skin: normal color, warm/dry Stroke Onset of Symptoms Date of Onset of Symptoms: Feb 23, 2023 Time of Symptom Onset: 19:59 NIH Stroke Scale Assessment Select: Initial Level of Consciousness: 0=Alert (0), LOC Commands: 0=Performs both tasks (0), Gaze: Normal (0), Visual Mirza: 0=No visual loss (0), Facial Movement (Facial Paresis): 0=Normal symmetrical mnt (0), Motor Function-Arms Right: 0=No drift (0), Motor Function-Arms Left: 0=No drift (0), Motor Function-Legs Right: 0=No drift (0), Motor Function-Legs Left: 0=No drift (0), Limb Ataxia: 0=Absent (0), Sensory: 0=Normal:no loss (0), Best Language: 1=Mild to moderat aphasia (1), Dysarthria: 0=Normal (0), Extinction & Inattention: 0=No abnormality (0), Total: 1 Progress/Results/Core Measures Results/Orders Lab Results Laboratory Tests Test 02/23/23 19:56 02/23/23 20:00 02/23/23 20:11 02/23/23 21:05 Range/Units Glucometer 136 H 70-110 MG/DL White Blood Count 12.9 H 4.3-11.0 10^3/uL Red Blood Count 5.00 3.80-5.11 10^6/uL Hemoglobin 14.0 11.5-16.0 g/dL Hematocrit 42 35-52 % Mean Corpuscular Volume 83 80-99 fL Mean Corpuscular Hemoglobin 28 25-34 pg Mean Corpuscular Hemoglobin Concent 34 32-36 g/dL Red Cell Distribution Width 12.5 10.0-14.5 % Platelet Count 347 130-400 10^3/uL Mean Platelet Volume 9.6 9.0-12.2 fL Immature Granulocyte % (Auto) 0 % Neutrophils (%) (Auto) 42 42-75 % Lymphocytes (%) (Auto) 49 H 12-44 % Monocytes (%) (Auto) 7 0-12 % Eosinophils (%) (Auto) 2 0-10 % Basophils (%) (Auto) 1 0-10 % Neutrophils # (Auto) 5.4 1.8-7.8 10^3/uL Lymphocytes # (Auto) 6.3 H 1.0-4.0 10^3/uL Monocytes # (Auto) 0.9 0.0-1.0 10^3/uL Eosinophils # (Auto) 0.3 0.0-0.3 10^3/uL Basophils # (Auto) 0.1 0.0-0.1 10^3/uL Immature Granulocyte # (Auto) 0.0 0.0-0.1 10^3/uL Prothrombin Time 14.0 12.2-14.7 SEC INR Comment 1.0 0.8-1.4 Activated Partial Thromboplast Time 29 24-35 SEC D-Dimer <= 0.27 0.00-0.49 UG/ML Sodium Level 141 135-145 MMOL/L Potassium Level 3.7 3.6-5.0 MMOL/L Chloride Level 107 98-107 MMOL/L Carbon Dioxide Level 21 21-32 MMOL/L Anion Gap 13 5-14 MMOL/L Blood Urea Nitrogen 13 7-18 MG/DL Creatinine 0.95 0.60-1.30 MG/DL Estimat Glomerular Filtration Rate 69 BUN/Creatinine Ratio 14 Glucose Level 149 H 70-105 MG/DL Calcium Level 9.5 8.5-10.1 MG/DL Corrected Calcium 9.5 8.5-10.1 MG/DL Total Bilirubin 0.8 0.1-1.0 MG/DL Aspartate Amino Transf (AST/SGOT) 15 5-34 U/L Alanine Aminotransferase (ALT/SGPT) 22 0-55 U/L Alkaline Phosphatase 86 40-136 U/L Troponin I < 0.028 <0.028 NG/ML Total Protein 7.4 6.4-8.2 GM/DL Albumin 4.0 3.2-4.5 GM/DL Smear Scan YES Influenza Type A (RT-PCR) Not Detected Not Detecte Influenza Type B (RT-PCR) Not Detected Not Detecte SARS-CoV-2 RNA (RT-PCR) Not Detected Not Detecte Urine Color YELLOW Urine Clarity CLEAR Urine pH 5.5 5-9 Urine Specific [place] >=1.030 1.016-1.022 Urine Protein NEGATIVE NEGATIVE Urine Glucose (UA) NEGATIVE NEGATIVE Urine Ketones NEGATIVE NEGATIVE Urine Nitrite NEGATIVE NEGATIVE Urine Bilirubin NEGATIVE NEGATIVE Urine Urobilinogen 0.2 < = 1.0 MG/DL Urine Leukocyte Esterase 1+ H NEGATIVE Urine RBC (Auto) NEGATIVE NEGATIVE Urine RBC RARE /HPF Urine WBC 10-25 H /HPF Urine Squamous Epithelial Cells 25-50 H /HPF Urine Crystals NONE /LPF Urine Bacteria FEW H /HPF Urine Casts PRESENT /LPF Urine Hyaline Casts RARE /LPF Urine Mucus SMALL H /LPF Urine Culture Indicated YES My Orders Orders - MAYFIELD,YUNG L DO Ekg Tracing (02/23/23 19:43) Cbc With Automated Diff (02/23/23 19:45) Protime With Inr (02/23/23 19:45) Partial Thromboplastin Time (02/23/23 19:45) Comprehensive Metabolic Panel (02/23/23 19:45) Fibrin Degradation Products (02/23/23 19:45) Troponin I Xenia (02/23/23 19:45) Ua Culture If Indicated (02/23/23 19:45) Chest 1 View, Ap/Pa Only (02/23/23 19:45) Catheter(Urinary) Insert & Ass 03,15 (02/23/23 19:45) Ekg Tracing (02/23/23 19:45) Nothing By Mouth (02/23/23 Dinner) Accucheck Stat ONCE (02/23/23:45) Ed Iv/Invasive Line Start (02/23/23 19:45) Vital Signs Stroke Patient Q15M (02/23/23 19:45) Ct Head Wo-R/O Stroke (02/23/23 19:45) Monitor-Rhythm Ecg Trace Only (02/23/23 19:45) Dysphagia Screening Tool [id number] (02/23/23 19:45) Post Thrombolytic Adminstratio (02/23/23 19:45) Influenza A And B By Pcr (02/23/23 20:01) Covid 19 Inhouse Test (02/23/23 20:01) Acetaminophen Tablet (Tylenol Tablet) (02/23/23 21:00) Urine Culture (02/23/23 21:05) Medications Given in ED Current Medications Medications Dose Ordered Sig/Devon Route Start Time Stop Time Status Last Admin Dose Admin Acetaminophen 1,000 mg ONCE ONCE PO 02/23/23 21:00 02/23/23 21:01 DC 02/23/23 21:00 1,000 MG Vital Signs/I&O 02/23/23 02/23/23 19:44 21:57 Temp 36.6 Pulse 103 100 Resp 14 14 B/P (MAP) 197/80 (119) 128/57 Pulse Ox 96 96 O2 Delivery Room Air Room Air Blood Pressure Mean: 119 Progress Progress Note : Progress Note Patient's daughter arrived and provided more information. Patient has been under extreme amount of stress. She was seen at [facility] today due to some extreme stress and chest discomfort and left arm discomfort that resolved. Patient then was visiting with law enforcement about some foster care issues when her symptoms that she was brought in started. Patient complained of chest pain again and then had a syncopal type episode in which she started shaking. Patient does not remember what happened and why she was here. Patient's symptoms completely resolved upon being here. She reports that she wants to go home. Patient was not sure exactly why she was here. I do suspect that patient likely had an acute stress reaction and anxiety reaction due to her extreme amount of stress. Patient's diagnostic studies were ordered reviewed and interpreted by me with minor elevation white count likely due to her stress reaction otherwise no acute findings. Patient had negative EKG as documented elsewhere in the chart. Patient had a negative head CT which I discussed with radiology with no acute findings. Patient had chest x-ray that was ordered with initial interpretation negative by me with final interpretation per radiology report. Patient does have an increased risk due to significant determinants of health. I did have a long discussion that she should return with any return of her symptoms or other concerns. Otherwise recommend she follow-up with her primary care provider to help manage her stress. Patient stable and discharged home. Initial ECG Impression Date: Feb 23, 2023 Initial ECG Impression Time: 20:04 Initial ECG Rate: 97 Initial ECG Rhythm: Normal Sinus Initial ECG Intervals: Normal Initial ECG Impression: Normal (EKG is normal which is) Comment normal, no acute changes. Diagnostic Imaging Diagonstic Imaging: CT Plain Films/CT/US/NM/MRI: abdomen Comments Date of Exam:02/23/23 CT HEAD WO-R/O STROKE PROCEDURE: CT head w/o r/o stroke. TECHNIQUE: Multiple contiguous axial images were obtained through the brain without the use of intravenous contrast. Auto Exposure Controls were utilized during the CT exam to meet ALARA standards for radiation dose reduction. INDICATION: Acute onset left weakness and headache. COMPARISON: 06/12/2020. Ventricles and sulci are within normal limits for size. There is no evidence of hemorrhage. There is no abnormal mass effect or shift of midline structures. There is focal opacification of inferior left mastoid air cell similar to previous study with possible internal concretion. Otherwise, paranasal sinuses are clear, as visualized. IMPRESSION: No acute intracranial abnormality. Diagonstic Imaging: Xray Plain Films/CT/US/NM/MRI: chest Comments Date of Exam:02/23/23 CHEST 1 VIEW, AP/PA ONLY INDICATION: Cerebrovascular accident. EXAMINATION: AP view of the chest was obtained. COMPARISON: Study of 03/11/2014. FINDINGS: Heart size and pulmonary vascularity are within normal limits, and the lungs are clear, bilaterally. IMPRESSION: Unremarkable chest. Reviewed: Reviewed by Me, Reviewed/Discussed Departure Impression Primary Impression: Acute fugue state due to acute stress reaction Disposition: HOME, SELF-CARE Condition: Stable Departure-Patient Inst. Referrals: ALEXA RUDOLPH MD (PCP/Family) Primary Care Physician Patient Instructions: Stress, Anxiety, Adult ED Add. Discharge Instructions: Please return to the ER with any concerns. Otherwise please follow-up with your primary care provider to help with your acute distress and life changes at this time All discharge instructions reviewed with patient and/or family. Voiced understanding. YUNG MAYFIELD DO Feb 23, 2023 20:00
[2023-02-23 20:11] LABS: BASOPHILS # (AUTO) 0.1 10^3/uL (0.0-0.1); BASOPHILS % (AUTO) 1 % (0-10); EOSINOPHILS # (AUTO) 0.3 10^3/uL (0.0-0.3); EOSINOPHILS % (AUTO) 2 % (0-10); HEMATOCRIT 42 % (35-52); LYMPHOCYTES # (AUTO) 6.3 10^3/uL (1.0-4.0); LYMPHOCYTES % (AUTO) 49 % (12-44); MEAN CORPUSCULAR HEMOGLOBIN 28 pg (25-34); MEAN CORPUSCULAR HGB CONC 34 g/dL (32-36); MEAN CORPUSCULAR VOLUME 83 fL (80-99); MEAN PLATELET VOLUME 9.6 fL (9.0-12.2); MONOCYTES # (AUTO) 0.9 10^3/uL (0.0-1.0); MONOCYTES % (AUTO) 7 % (0-12); NEUTROPHILS # (AUTO) 5.4 10^3/uL (1.8-7.8); NEUTROPHILS % (AUTO) 42 % (42-75); PLATELET COUNT 347 10^3/uL (130-400); WHITE BLOOD COUNT 12.9 10^3/uL (4.3-11.0)
[2023-02-23 20:23] LABS: SMEAR SCAN COMMENT YES
[2023-02-23 20:33] LABS: ALANINE AMINOTRANSFERASE 22 U/L (0-55); ALKALINE PHOSPHATASE 86 U/L (40-136); BILIRUBIN,TOTAL 0.8 MG/DL (0.1-1.0); BUN/CREATININE RATIO 14; CALCIUM 9.5 MG/DL (8.5-10.1); CARBON DIOXIDE 21 MMOL/L (21-32); CHLORIDE 107 MMOL/L (98-107); CREATININE SERUM 0.95 MG/DL (0.60-1.30); GFR ESTIMATED 69; GLUCOSE 149 MG/DL (70-105); POTASSIUM 3.7 MMOL/L (3.6-5.0); SODIUM 141 MMOL/L (135-145); TOTAL PROTEIN 7.4 GM/DL (6.4-8.2)
--- NOTE | 2023-02-23 20:41 | Diagnostic Imaging Report ---
INDICATION: Cerebrovascular accident. EXAMINATION: AP view of the chest was obtained. COMPARISON: Study of 03/11/2014. FINDINGS: Heart size and pulmonary vascularity are within normal limits, and the lungs are clear, bilaterally. IMPRESSION: Unremarkable chest. Dictated by: Dictated on workstation # [id number]
[2023-02-23 20:54] LABS: FIBRIN DEGRADATION PRODUCTS <= 0.27 UG/ML (0.00-0.49); PARTIAL THROMBOPLASTIN TIME 29 SEC (24-35)
[2023-02-23] MEDS ORDERED: ACETAMINOPHEN 500 MG TAB (TYLENOL) PO ONE (21:00)
[2023-02-23 21:14] LABS: BILIRUBIN,URINE NEGATIVE (NEGATIVE); CLARITY,URINE CLEAR; COLOR,URINE YELLOW; GLUCOSE, URINE (UA) NEGATIVE (NEGATIVE); KETONES,URINE NEGATIVE (NEGATIVE); LEUKOCYTE ESTERASE ,URINE 1+ (NEGATIVE); NITRITE,URINE NEGATIVE (NEGATIVE); PH,URINE 5.5 (5-9); PROTEIN,URINE NEGATIVE (NEGATIVE)
[2023-02-23 21:24] LABS: BACTERIA,URINE FEW /HPF; RBC,URINE RARE /HPF; SQUAMOUS EPITHELIAL CELL,UR 25-50 /HPF
[2023-02-23 21:25] LABS: HYALINE CASTS, URINE RARE /LPF
[2023-02-23 21:57] VITALS: BP 128/57
== END 2023-02-23 21:57 | disposition home or self-care (01) ==
LOC: EDUNIT# 19:42 → ER 19:43
DX: F43.0 Acute stress reaction (principal); E11.9 Type 2 diabetes mellitus without complications; Z79.4 Long term (current) use of insulin; Z20.822 Contact with and (suspected) exposure to COVID-19
CPT/HCPCS: 36415; 70450; 71045; 80053; 81000; 82947; 84484; 85025; 85379; 85610; 85730; 87088; 87636; 93005; 93041